=== PATIENT | female | born 1980 | race American Indian/Alaskan Native ===

== ENCOUNTER 2018-06-03 15:27 | Emergency (ER) | payer OTHER ==
[2018-06-03] MEDS ORDERED: NACL 0.9% 500 ML 500 ML IV ONE (16:20)
[2018-06-03] MEDS ORDERED: NACL 0.9% 1000 ML IV ONE (16:28)
[2018-06-03] MEDS ORDERED: TORADOL IV ONE (16:30)
[2018-06-03 16:32] LABS: Basophils # (Auto) 0.1 K/mm3 (0.0-0.1); Basophils % (Auto) 0.5 % (0.0-1.8); Eosinophils % (Auto) 0.2 % (0.0-4.3); Hematocrit 27.4 % (30.3-42.9); Hemoglobin 8.9 gm/dl (10.1-14.3); Lymphocytes # (Auto) 1.8 K/mm3 (1.2-5.4); Lymphocytes % (Auto) 14.5 % (13.4-35.0); Mean Corpuscular HGB Conc 33 % (30-34); Mean Corpuscular Hemoglobin 27 pg (28-32); Mean Corpuscular Volume 83 fl (79-97); Monocytes # (Auto) 0.5 K/mm3 (0.0-0.8); Platelet Count 212 K/mm3 (140-440); Red Blood Count 3.32 M/mm3 (3.65-5.03); Red Cell Distribution Width 17.2 % (13.2-15.2)
--- NOTE | 2018-06-03 16:35 | Emergency Department Report ---
ED Fever HPI - General Chief Complaint: Fever Stated Complaint: BACK PAIN Time Seen by Provider: 06/03/18 16:26 - History of Present Illness Initial Comments: Patient is a 38-year-old ethnic female who is presenting with fever. Patient states that her children went back to school several days ago and she thinks she may have been exposed to some illness. Patient states that she has a productive cough as well as some diffuse mid back discomfort. Patient states that she feels some mild shortness of breath. Patient has had fevers at home. Patient states she's had some mild urinary incontinence with coughing. Patient denies any nausea vomiting and diarrhea at this time. Timing/Duration: yesterday Fever Severity/Quality: greater than 102 F Associated Symptoms: cough, diaphoresis, headache, muscle aches, shortness of breath. denies: abdominal pain, chest pain, confusion, nausea/vomiting, rash, sore throat, stiff neck, syncope, weakness ED Review of Systems ROS: Stated complaint: BACK PAIN Other details as noted in HPI Comment: All other systems reviewed and negative ED Past Medical Hx - Past Medical History Previous Medical History?: No - Surgical History Past Surgical History?: Yes Additional Surgical History: tubal ligation - Social History Smoking Status: Never Smoker Substance Use Type: None - Medications Home Medications: Home Medications Medication Instructions Recorded Confirmed Last Taken Type ALBUTEROL Inhaler [ProAir HFA 2 puff IH QID PRN #1 inhalation 06/03/18 Unknown Rx Inhaler] Benzonatate [Tessalon Perles] 100 mg PO Q8HR #10 capsule 06/03/18 Unknown Rx HYDROcodone/APAP 5-325 [[place] 1 each PO Q6HR PRN #15 tablet 06/03/18 Unknown Rx 5/325] Levofloxacin [Levaquin TAB] 500 mg PO QDAY #10 tablet 06/03/18 Unknown Rx Potassium Chloride [K-Dur] 20 meq PO QDAY #5 tablet 06/03/18 Unknown Rx predniSONE [Deltasone] 20 mg PO QDAY #5 tab 06/03/18 Unknown Rx ED Physical Exam - General Limitations: No Limitations General appearance: alert, in no apparent distress - Head Head exam: Present: atraumatic, normocephalic - Eye Eye exam: Present: normal appearance - ENT ENT exam: Present: mucous membranes moist - Neck Neck exam: Present: normal inspection - Respiratory Respiratory exam: Present: normal lung sounds bilaterally, rhonchi. Absent: respiratory distress, wheezes, rales - Cardiovascular Cardiovascular Exam: Present: normal rhythm, tachycardia. Absent: systolic murmur, diastolic murmur, rubs, gallop - GI/Abdominal GI/Abdominal exam: Present: soft, normal bowel sounds. Absent: distended, tenderness, guarding, rebound - Extremities Exam Extremities exam: Present: normal inspection - Back Exam Back exam: Present: normal inspection - Neurological Exam Neurological exam: Present: alert, oriented X3 - Psychiatric Psychiatric exam: Present: normal affect, normal mood - Skin Skin exam: Present: warm, dry, intact, normal color. Absent: rash ED Course Vital Signs 06/03/18 16:12 Temperature 103.1 F H Pulse Rate 137 H Respiratory 16 Rate Blood Pressure 115/76 O2 Sat by Pulse 95 Oximetry - Reevaluation(s) Reevaluation #1: 06/03/18 16:31 Patient is a 38-year-old asthmatic female presented with fever and cough. On patient arrival patient was immediately started on sepsis protocol. Patient seen by me had blood cultures ordered before antibiotics. Patient started on Rocephin and azithromycin for presumed pneumonia. also had a lactic acid ordered as well. ED Medical Decision Making - Lab Data Result diagrams: 06/03/18 16:22 06/03/18 16:22 - EKG Data -: EKG Interpreted by Me EKG shows normal: axis, intervals, QRS complexes, ST-T waves Rate: tachycardia - Radiology Data Chest x-ray shows a left lower lobe infiltrate - Medical Decision Making Patient's curb 65 and PSI score both suggests outpatient therapy. Patient's O2 sats remains within normal limits. Patient received IV fluids as well as IV antibiotics. The patient's lactic acid and other laboratory studies do not support a diagnosis of sepsis. Patient will be discharged home in stable condition Critical Care Time: Yes (30) Critical care attestation.: If time is entered above; I have spent that time in minutes in the direct care of this critically ill patient, excluding procedure time. ED Disposition Clinical Impression: Hypokalemia Pneumonia Qualifiers: Pneumonia type: due to unspecified organism Laterality: left Lung location: lower lobe of lung Qualified Code(s): J18.1 - Lobar pneumonia, unspecified organism Disposition: TO HOME OR SELFCARE Is pt being admited?: Yes Condition: Stable Instructions: Bacterial Pneumonia (ED) Referrals: PRIMARY CARE,MD [Primary Care Provider] - 3-5 Days
[2018-06-03 16:41] LABS: INR 1.05 (0.87-1.13)
--- NOTE | 2018-06-03 16:43 | XRay Report ---
FINAL REPORT PROCEDURE: Chest. TECHNIQUE: Portable AP view. HISTORY: Possible sepsis. COMPARISON: No prior studies are available for comparison. FINDINGS: The heart and mediastinum appear normal. The right lung is clear and well expanded. There is hazy opacity in the lower half of the left lung. This is suspicious for pneumonia. Follow-up imaging is recommended. The soft tissues are unremarkable. The regional skeleton appears intact. IMPRESSION: Probable left basilar pneumonia.
[2018-06-03 16:45] LABS: Alanine Aminotransferase 18 units/L (7-56); Albumin 3.7 g/dL (3.9-5); BUN/Creatinine Ratio 6; Blood Urea Nitrogen 6 mg/dL (7-17); Hemolysis Index 0
[2018-06-03] MEDS ORDERED: ZITHROMAX 500 MG in NACL 0.9% 250ML 250 ML IV SCH (17:00)
[2018-06-03] MEDS ORDERED: KCL 10MEQ/100ML 10 MEQ/100 ML BAG IV ONE (17:04)
[2018-06-03] MEDS ORDERED: K-DUR PO ONE (17:04)
[2018-06-03] MEDS ORDERED: TYLENOL PO ONE (17:28)
[2018-06-03] MEDS ORDERED: LASIX IV ONE (17:35)
[2018-06-03] MEDS ORDERED: ROCEPHIN/NS 2 GM/100 ML 2 GM/100 ML BAG IV SCH (18:00)
[2018-06-03] MEDS ORDERED: NACL 0.9% 1000 ML 1,000 ML ONE (18:36)
[2018-06-03 21:06] VITALS: BP 101/60
[2018-06-03 22:01] LABS: Bilirubin,Urine NEG (Negative); Color,Urine Yellow (Yellow)
[2018-06-03 22:02] LABS: Blood,Urine SM (Negative)
== END 2018-06-03 21:42 | disposition home or self-care (01) ==
LOC: ED 15:27
DX: J18.1 Lobar pneumonia, unspecified organism (principal); E87.6 Hypokalemia; M54.89 Other dorsalgia; J45.909 Unspecified asthma, uncomplicated; Z98.51 Tubal ligation status
CPT/HCPCS: 36415; 71045; 80053; 81001; 82140; 82805; 85025; 85610; 87040; 87086; 93005; 93010; 96365; 96366; 96367; 96375; 99291; J0456; J0696; J1885; J3480; J7030; J7050; 96368